=== PATIENT | female | born 1950 | race Caucasian/White ===

== ENCOUNTER 2017-10-27 10:59 | Emergency (ER) | payer MEDICARE, OTHER ==
[2017-10-27] MEDS ORDERED: Metoclopramide 10 MG/2 ML SDV IVPUSH ONE (11:11)
[2017-10-27] MEDS ORDERED: Sodium Chloride 0.9% 10 ML Syringe FLUSH PRN (11:13)
--- NOTE | 2017-10-27 11:19 | EDM.PDOC ---
ED HPI GENERAL MEDICAL PROBLEM - General Chief Complaint: General Stated Complaint: DIZZY,THROWING UP Time Seen by Provider: 10/27/17 10:59 Source of Information: Reports: Patient, Family History Limitations: Reports: No Limitations - History of Present Illness INITIAL COMMENTS - FREE TEXT/NARRATIVE: Patient comes in to the emergency department this morning with her spouse with complaint of dizziness, nausea, and vomiting. It was a sudden onset this morning while at [employer]. She states last night when she was getting to bed she had a slight episode of dizziness but that resolved after lying down. This morning for the last 2 hours if she moves her head in any direction but especially to the right she becomes very dizzy and nauseous and vomits. If she bends forward she notices great relief. She has vomited multiple times denies any fever chest pain shortness of breath or diarrhea. Onset: Sudden - Related Data Allergies Allergy/AdvReac Type Severity Reaction Status Date / Time No Known Allergies Allergy Verified 10/27/17 11:15 Home Meds: Home Meds . [No Known Home Meds] 10/27/17 [History] ED ROS GENERAL - Review of Systems Review Of Systems: See Below Constitutional: Reports: No Symptoms HEENT: Reports: No Symptoms Respiratory: Reports: No Symptoms Cardiovascular: Reports: No Symptoms Endocrine: Reports: No Symptoms GI/Abdominal: Reports: Nausea, Vomiting : Reports: No Symptoms Musculoskeletal: Reports: No Symptoms Skin: Reports: No Symptoms Neurological: Reports: Dizziness Psychiatric: Reports: No Symptoms Hematologic/Lymphatic: Reports: No Symptoms Immunologic: Reports: No Symptoms ED EXAM, GENERAL - Physical Exam Exam: See Below Exam Limited By: No Limitations General Appearance: Alert, WD/WN, No Apparent Distress Respiratory/Chest: No Respiratory Distress, Lungs Clear, Normal Breath Sounds, No Accessory Muscle Use, Chest Non-Tender Cardiovascular: Normal Peripheral Pulses, Regular Rate, Rhythm, No Edema GI/Abdominal: Normal Bowel Sounds, Soft, Non-Tender, No Distention, No Abnormal Bruit Back Exam: Normal Inspection, Full Range of Motion Extremities: Normal Inspection, Normal Range of Motion, Non-Tender, Normal Capillary Refill Neurological: Alert, Oriented, CN II-XII Intact, Normal Cognition, Normal Reflexes Course - Vital Signs Last Recorded V/S: Last Vital Signs Temp 36.1 C 10/27/17 11:11 Pulse 74 10/27/17 11:11 Resp 16 10/27/17 11:11 BP 207/104 H 10/27/17 11:11 Pulse Ox 98 10/27/17 11:11 - Orders/Labs/Meds Orders: Active Orders 24 hr Category Date Time Status EKG 12 Lead [EKG Documentation Completion] [RC] URGENT Care 10/27/17 11:13 Active Lactated Ringers [Ringers, Lactated] 1,000 ml Med 10/27/17 11:15 Active IV ASDIRECTED Sodium Chloride 0.9% [Saline Flush] Med 10/27/17 11:13 Active 10 ml FLUSH ASDIRECTED PRN Peripheral IV Insertion Adult [OM.PC] Routine Oth 10/27/17 11:13 Ordered Medication Orders Lactated Ringer's (Ringers, Lactated) 1,000 mls @ 1,000 mls/hr IV ASDIRECTED JACQUELINE Last Admin: 10/27/17 11:41 Dose: 1,000 mls/hr Infusion: 10/27/17 11:41 Dose: 1,000 mls/hr Admin: 10/27/17 11:22 Dose: 1,000 mls/hr Sodium Chloride (Saline Flush) 10 ml FLUSH ASDIRECTED PRN PRN Reason: Keep Vein Open Labs: Laboratory Tests 10/27/17 10/27/17 Range/Units 11:15 11:15 WBC 6.8 (4.0-10.0) x10^3/uL RBC 4.58 (4.00-5.50) x10^6/uL Hgb 13.7 (12.0-16.0) g/dL Hct 40.0 (33.0-47.0) % MCV 87.3 (78.0-93.0) fL MCH 29.9 (26.0-32.0) pg MCHC 34.3 (32.0-36.0) g/dL RDW Coeff of Janina 12.8 (10.0-15.0) % Plt Count 181 (130-400) x10^3/uL Neut % (Auto) 72.3 (50.0-80.0) % Lymph % (Auto) 22.2 L (25.0-50.0) % [place] % (Auto) 4.8 (2.0-11.0) % Eos % (Auto) 0.4 (0.0-4.0) % Baso % (Auto) 0.3 (0.2-1.2) % Sodium 141 (136-145) mmol/L Potassium 3.6 (3.5-5.1) mmol/L Chloride 104 (98-107) mmol/L Carbon Dioxide 28 (21-32) mmol/L Anion Gap 12.6 (10-20) mmol/L BUN 16 (7-18) mg/dL Creatinine 0.7 (0.55-1.02) mg/dL Est Cr Clr Drug Dosing 65.90 mL/min Estimated GFR (MDRD) > 60 Glucose 109 H (74-106) mg/dL Calcium 9.7 (8.5-10.1) mg/dL Corrected Calcium 9.70 (8.5-10.1) mg/dL Total Bilirubin 0.6 (0.2-1.0) mg/dL AST 19 (15-37) U/L ALT 28 (14-59) U/L Alkaline Phosphatase 78 (46-116) U/L Total Protein 7.6 (6.4-8.2) g/dL Albumin 4.0 (3.4-5.0) g/dL Globulin 3.6 Albumin/Globulin Ratio 1.11 Meds: Medications Generic Name Dose Route Start Last Admin Trade Name Freq PRN Reason Stop Dose Admin Lactated Ringer's 1,000 mls @ 1,000 mls/hr 10/27/17 11:15 10/27/17 11:41 Ringers, Lactated IV 1,000 mls/hr ASDIRECTED JACQUELINE Administration Sodium Chloride 10 ml 10/27/17 11:13 Saline Flush FLUSH ASDIRECTED PRN Keep Vein Open Discontinued Medications Generic Name Dose Route Start Last Admin Trade Name Freq PRN Reason Stop Dose Admin Metoclopramide HCl 5 mg 10/27/17 11:11 10/27/17 11:37 Reglan IVPUSH 10/27/17 11:12 5 mg ONETIME ONE Administration Ondansetron HCl 4 mg 10/27/17 12:32 10/27/17 12:37 Zofran IVPUSH 10/27/17 12:33 4 mg ONETIME ONE Administration Scopolamine 1.5 mg 10/27/17 12:01 10/27/17 12:16 Transderm-Scop TOP 10/27/17 12:02 1.5 mg ONETIME ONE Administration - Re-Assessments/Exams Free Text/Narrative Re-Assessment/Exam: 10/27/17 12:45 Pt has a 1.5 Liters of fluid and reglan, scopolamine patch and zofran. Pt is beginning to feel better and is able to get up and ambulated without vomiting or becoming dizzy Departure - Departure Time of Disposition: 13:05 Disposition: Home, Self-Care 01 Clinical Impression: Vertigo Nausea & vomiting Qualifiers: Vomiting type: unspecified Vomiting Intractability: non-intractable Qualified Code(s): R11.2 - Nausea with vomiting, unspecified - Discharge Information Instructions: Vertigo, [id number], Nausea and Vomiting, Adult Referrals: PCP,Not In Area [Primary Care Provider] - Forms: ED Department Discharge Additional Instructions: 1. Rest 2. Move slowly from the laying position to seated position 3. Completed the Wilber maneuver if vertigo comes back:kneel down and woke up at the ceiling for a few seconds. Touch the floor with her head tucking her chin so your head goes toward your knees. Wait for any vertigo to stop approximately 30 seconds. Turn her head in the direction of your affected ear (if dizziness is on the right side turn head to the right). There are videos on youtube to help with visual if needed. Please look up Wilber maneuver. 4. If not getting better within the week follow up at home with physical therapy or vertigo specialist 5. Activity and diet as tolerated - Problem List Review Problem List Initiated/Reviewed/Updated: Yes - My Orders Last 24 Hours: My Active Orders 10/27/17 11:13 EKG 12 Lead [EKG Documentation Completion] [RC] URGENT Sodium Chloride 0.9% [Saline Flush] 10 ml FLUSH ASDIRECTED PRN Peripheral IV Insertion Adult [OM.PC] Routine 10/27/17 11:15 Lactated Ringers [Ringers, Lactated] 1,000 ml IV ASDIRECTED - Assessment/Plan Last 24 Hours: My Active Orders 10/27/17 11:13 EKG 12 Lead [EKG Documentation Completion] [RC] URGENT Sodium Chloride 0.9% [Saline Flush] 10 ml FLUSH ASDIRECTED PRN Peripheral IV Insertion Adult [OM.PC] Routine 10/27/17 11:15 Lactated Ringers [Ringers, Lactated] 1,000 ml IV ASDIRECTED Assessment:: 1. Dizziness 2. Nausea 3. Vomiting Plan: 1. Labs completed in the ER with results reviewed with the pt and spouse 2. IV and fluid resuscitation completed in ER for volume loss of severe vomiting for 2+ hours 3. Reglan and zofran was given for nausea/vomiting 4. EKG completed reveling NSR 5. Nausea/vomiting and dizziness continued while moving. A scopolamine patch was placed to help
[2017-10-27] MEDS: Lactated Ringers 1,000 ML IV SCH ×2 (11:22→11:41)
[2017-10-27 11:42] LABS: CHLORIDE,CL 104 mmol/L (98-107); SODIUM,NA 141 mmol/L (136-145)
[2017-10-27] MEDS ORDERED: Scopolamine 1.5 MG Transdermal Patch TOP ONE (12:01)
[2017-10-27] MEDS ORDERED: Ondansetron 4 MG/2 ML SDV IVPUSH ONE (12:32)
== END 2017-10-27 13:10 | disposition home or self-care (01) ==
LOC: VM.ED 10:59
DX: R42 Dizziness and giddiness (principal); R11.2 Nausea with vomiting, unspecified
CPT/HCPCS: 80053; 85025; 93005; 96361; 96374; 96375; 99284; A9270; J2405; J2765; J7120; 93010; 99283-GF